=== PATIENT | male | born 1950 | race Caucasian/White ===

== ENCOUNTER → 2023-05-14 10:57 | Outpatient (REF) | payer MEDICARE, SELFPAY | LOC: RAD 10:57 | PROVIDERS: ATTENDING PHYSICIAN Internal Medicine | DX: R10.9 Unspecified abdominal pain (principal); Z82.49 Family history of ischemic heart disease and other diseases of the circulatory system | CPT/HCPCS: 76770 ==

== ENCOUNTER → 2023-12-29 15:37 | Outpatient (REF) | payer MEDICARE, SELFPAY | LOC: RAD 15:37 | PROVIDERS: ATTENDING PHYSICIAN Internal Medicine Hematology & Oncology; FAMILY PHYSICIAN Internal Medicine | DX: C91.10 Chronic lymphocytic leukemia of B-cell type not having achieved remission (principal) | CPT/HCPCS: 76700 ==